=== PATIENT | female | born 1975 | race Caucasian/White ===

== ENCOUNTER 2020-05-25 10:30 | Emergency (ER) | payer OTHER, SELFPAY ==
[~2020-05-25] VITALS: Ht 157.5 cm; Wt 59.0 kg
[2020-05-25 10:58] VITALS: BP 123/82
[2020-05-25] MEDS ORDERED: NACL 0.9% 1,000 ML IV ONE (12:35)
[2020-05-25] MEDS ORDERED: ACETAMINOPHEN EXTRA STRENGTH 500 MG TAB PO ONE (12:40)
[2020-05-25] MEDS ORDERED: KETOROLAC 15 MG/ML VIAL IVP ONE (13:30)
[2020-05-25] MEDS ORDERED: KETOROLAC 15 MG/ML VIAL ONE (13:31)
[2020-05-25 13:34] LABS: BASOPHILS % (AUTO) 0.4 % (0.0-2.0); EOSINOPHILS % (AUTO) 0.1 % (0.0-4.0); HEMATOCRIT 36.3 % (36-48); HEMOGLOBIN 12.2 g/dL (12.0-16.0); LYMPHOCYTES # (AUTO) 0.7 K/uL (2.5-16.5); LYMPHOCYTES % (AUTO) 18.7 % (20.5-51.1); MEAN CORPUSCULAR HEMOGLOBIN 29 pg (27-31); MEAN CORPUSCULAR HGB CONC 34 g/dL (33-37); MEAN CORPUSCULAR VOLUME 85.7 fL (80-94); MONOCYTES # (AUTO) 0.3 K/uL (0.8-1.0); MONOCYTES % (AUTO) 7.6 % (1.7-9.3); NEUTROPHILS # (AUTO) 2.8 K/uL (1.8-7.7); NEUTROPHILS % (AUTO) 73.2 % (42.2-75.2); PLATELET COUNT (AUTO) 157 K/uL (140-450); RED BLOOD CELL COUNT(AUTO) 4.23 MIL/uL (4.20-5.40); RED CELL DISTRIBUTION WIDTH 13.9 % (11.6-13.7); WHITE BLOOD COUNT (AUTO) 3.8 K/uL (4.8-10.8)
[2020-05-25 14:02] LABS: ANION GAP 17.9 (8-16); CARBON DIOXIDE 20.7 mmol/L (21-32); CREATININE 0.9 mg/dL (0.6-1.3); POTASSIUM 3.6 mmol/L (3.5-5.1)
[2020-05-25 14:09] LABS: ALBUMIN 3.2 g/dL (3.4-5.0); TOTAL BILIRUBIN 0.4 mg/dL (0.0-1.0)
[2020-05-25 14:12] VITALS: BP 118/78
== END 2020-05-25 14:10 | disposition home or self-care (01) ==
LOC: MED 10:30 → EEVIPCON 10:30 → MED 14:10
DX: R50.81 Fever presenting with conditions classified elsewhere (principal); D72.819 Decreased white blood cell count, unspecified; M79.10 Myalgia, unspecified site; M32.9 Systemic lupus erythematosus, unspecified; R51 Headache; R43.8 Other disturbances of smell and taste
CPT/HCPCS: 36415; 80053; 81002; 81025; 85025; 96374; 99283; J1885; J7030